=== PATIENT | male | born 1965 | race Caucasian/White ===

== ENCOUNTER 2023-03-24 03:07 | Emergency (ER) | payer OTHER ==
[2023-03-24] MEDS ORDERED: Ibuprofen 200 MG TAB ONE (03:41)
== END 2023-03-24 04:23 | disposition home or self-care (01) ==
LOC: NAV ERS 03:07
DX: S82.435A Nondisplaced oblique fracture of shaft of left fibula, initial encounter for closed fracture (principal); S93.402A Sprain of unspecified ligament of left ankle, initial encounter; S93.602A Unspecified sprain of left foot, initial encounter; W18.2XXA Fall in (into) shower or empty bathtub, initial encounter; Y93.E1 Activity, personal bathing and showering; Y92.142 Bathroom in prison as the place of occurrence of the external cause